=== PATIENT | female | born 2000 | race Two or more races ===

== ENCOUNTER 2021-07-20 17:16 | Emergency (ER) | payer OTHER ==
[2021-07-20 17:40] VITALS: BP 133/81; PULSE 95; TEMP 98.3; BMI 29.9
[2021-07-20 19:42] LABS: EPI CELLS 21 /uL (0-25.1); HYALINE CASTS 2 /uL (0-3.1); PH,URINE 6.5 (5.0-8.0); URINE APPEARANCE CLEAR; URINE BACTERIA 2261 /uL (0-1359); URINE BILIRUBIN NEGATIVE (NEGATIVE); URINE COLOR YELLOW; URINE GLUCOSE (UA) NEGATIVE (NEGATIVE); URINE KETONE 2+ (NEGATIVE); URINE LEUK ESTERASE 2+ (NEGATIVE); URINE NITRITE NEGATIVE (NEGATIVE); URINE PROTEIN 1+ (NEGATIVE); URINE RBC 14 /uL (0-23.9); URINE WBC 33 /uL (0-25.8)
[2021-07-20 20:10] LABS: HCG,QUALITATIVE URINE Negative
== END 2021-07-20 21:30 | disposition home or self-care (01) ==
LOC: JERFT 17:16
DX: N73.9 Female pelvic inflammatory disease, unspecified (principal)
CPT/HCPCS: 36415; 81003; 84703; 87070; 87086; 87205; 87491; 87591; 99284-25

== ENCOUNTER 2021-08-21 12:18 | Emergency (ER) | payer OTHER ==
[2021-08-21 12:43] VITALS: BP 113/63; PULSE 86; TEMP 98.1; BMI 29.9
[2021-08-21 14:02] LABS: URINE APPEARANCE CLEAR; URINE BILIRUBIN NEGATIVE (NEGATIVE); URINE COLOR YELLOW; URINE GLUCOSE (UA) NEGATIVE (NEGATIVE); URINE KETONE NEGATIVE (NEGATIVE); URINE LEUK ESTERASE NEGATIVE (NEGATIVE); URINE NITRITE NEGATIVE (NEGATIVE); URINE PROTEIN NEGATIVE (NEGATIVE)
== END 2021-08-21 15:53 | disposition home or self-care (01) ==
LOC: JERFT 12:18
DX: B37.3 Candidiasis of vulva and vagina (principal); N76.0 Acute vaginitis
CPT/HCPCS: 36415; 81003; 87070; 87086; 87205; 87491; 87591; 99283-25

== ENCOUNTER 2021-11-06 21:45 | Emergency (ER) | payer OTHER ==
[2021-11-06 22:24] VITALS: BMI 25.4
[2021-11-07 01:49] LABS: EPI CELLS 18 /uL (0-25.1); HCG,QUALITATIVE URINE Negative; HYALINE CASTS 0 /uL (0-3.1); URINE APPEARANCE CLEAR; URINE BACTERIA 71 /uL (0-1359); URINE BILIRUBIN NEGATIVE (NEGATIVE); URINE COLOR YELLOW; URINE GLUCOSE (UA) NEGATIVE (NEGATIVE); URINE KETONE 1+ (NEGATIVE); URINE LEUK ESTERASE NEGATIVE (NEGATIVE); URINE NITRITE NEGATIVE (NEGATIVE); URINE PROTEIN NEGATIVE (NEGATIVE); URINE RBC 15 /uL (0-23.9); URINE UROBILINOGEN 0.2 mg/dL (0.2-1.0); URINE WBC 2 /uL (0-25.8)
[2021-11-07 03:21] VITALS: BP 121/79; PULSE 87; TEMP 98.2
[2021-11-08 14:13] LABS: SARS-CoV-2 NAA Not Detected (Not Detected)
== END 2021-11-07 03:33 | disposition home or self-care (01) ==
LOC: JER 21:45
DX: N93.9 Abnormal uterine and vaginal bleeding, unspecified (principal)
CPT/HCPCS: 76830-TC; 81003; 84703; 99284-25; C9803-CS; U0003; U0005

== ENCOUNTER 2022-06-30 22:34 | Inpatient (IN) | payer OTHER ==
[2022-06-30 22:40] VITALS: BMI 29.9
[2022-06-30] MEDS ORDERED: KETOROLAC TROMETHAMINE 30 MG/1 ML VIAL IM ONE (23:03)
[2022-06-30] MEDS ORDERED: KETOROLAC TROMETHAMINE 30 MG/1 ML VIAL ONE (23:05)
[2022-06-30] MEDS ORDERED: ONDANSETRON *ODT* 4 MG TABLET SL ONE (23:54)
[2022-07-01] MEDS ORDERED: ONDANSETRON *ODT* 4 MG TABLET ONE (00:19)
[2022-07-01 00:40] LABS: EPI CELLS 15 /uL (0-25.1); HCG,QUALITATIVE URINE Negative; HYALINE CASTS 0 /uL (0-3.1); URINE APPEARANCE CLOUDY; URINE BACTERIA 467 /uL (0-1359); URINE BILIRUBIN NEGATIVE (NEGATIVE); URINE COLOR YELLOW; URINE GLUCOSE (UA) NEGATIVE (NEGATIVE); URINE KETONE TRACE (NEGATIVE); URINE LEUK ESTERASE NEGATIVE (NEGATIVE); URINE NITRITE NEGATIVE (NEGATIVE); URINE PROTEIN NEGATIVE (NEGATIVE); URINE RBC 24 /uL (0-23.9); URINE WBC 3 /uL (0-25.8)
[2022-07-01 03:05] LABS: EOS % 0.8 % (0-4.5); HEMATOCRIT 41.9 % (32.4-45.2); HEMOGLOBIN 14.7 GM/dL (10.7-15.3); LYMPH % 25.9 % (8-40); MCH 31.8 pg (25.7-33.7); MCHC 35.2 g/dl (32.0-36.0); MEAN CELL VOLUME 90.3 fl (80-96); MEAN PLT VOLUME 8.1 fl (7.5-11.1); MONO % 6.8 % (3.8-10.2); NEUT % 65.5 % (42.8-82.8); PLATELET COUNT 309 10^3/uL (134-434); RBC 4.64 M/mm3 (3.60-5.2); RDW 13.6 % (11.6-15.6); WHITE BLOOD COUNT 9.8 K/mm3 (4.0-10.0)
[2022-07-01 03:24] LABS: CALCIUM 9.7 mg/dL (8.5-10.1)
[2022-07-01 03:25] LABS: ALBUMIN 4.2 g/dl (3.4-5.0); BLOOD UREA NITROGEN 14.7 mg/dL (7-18)
[2022-07-01 03:28] LABS: CREATININE 0.6 mg/dL (0.55-1.3)
[2022-07-01 03:29] LABS: BILIRUBIN,TOTAL 0.4 mg/dL (0.2-1)
[2022-07-01 03:30] LABS: TOT PROT 7.5 g/dl (6.4-8.2)
[2022-07-01 04:55] LABS: URINE CRYSTALS MODERATE /hpf
[2022-07-01 06:23] VITALS: RESP 18
[2022-07-01] MEDS ORDERED: ACETAMINOPHEN 500 MG TABLET (FP) PO PRN (12:19)
[2022-07-01] MEDS ORDERED: KETOROLAC TROMETHAMINE 15 MG/ML VIAL IM PRN (12:19)
[2022-07-02 09:52] LABS: BASO % 0.3 % (0-2.0); EOS % 1.2 % (0-4.5); HEMATOCRIT 40.8 % (32.4-45.2); HEMOGLOBIN 13.9 GM/dL (10.7-15.3); LYMPH % 36.3 % (8-40); MCH 30.8 pg (25.7-33.7); MCHC 34.1 g/dl (32.0-36.0); MEAN CELL VOLUME 90.5 fl (80-96); MEAN PLT VOLUME 8.8 fl (7.5-11.1); MONO % 7.2 % (3.8-10.2); PLATELET COUNT 328 10^3/uL (134-434); RDW 13.7 % (11.6-15.6); WHITE BLOOD COUNT 6.3 K/mm3 (4.0-10.0)
[2022-07-02 10:15] LABS: CALCIUM 9.2 mg/dL (8.5-10.1)
[2022-07-02 10:16] LABS: BLOOD UREA NITROGEN 12.8 mg/dL (7-18)
[2022-07-02 10:18] LABS: PHOSPHOROUS 3.6 mg/dL (2.5-4.9)
[2022-07-02 10:19] LABS: CREATININE 0.7 mg/dL (0.55-1.3)
[2022-07-02 15:41] VITALS: BP 112/54; PULSE 80; TEMP 98.5
== END 2022-07-02 15:59 | disposition home or self-care (01) | DRG 532 ==
LOC: JER 22:34 → JERBED 07-01 05:13 → J5S 07-01 07:22
PROVIDERS: ADMIT Internal Medicine
DX: N83.292 Other ovarian cyst, left side (principal); I10 Essential (primary) hypertension; E78.5 Hyperlipidemia, unspecified; R10.2 Pelvic and perineal pain; F41.8 Other specified anxiety disorders; F31.9 Bipolar disorder, unspecified; E66.9 Obesity, unspecified; Z68.30 Body mass index [BMI] 30.0-30.9, adult; R10.32 Left lower quadrant pain; Z94.0 Kidney transplant status; Z94.4 Liver transplant status
CPT/HCPCS: 36415; 76830-TC; 80048; 80053; 81003; 83735; 84100; 84703; 85025; 87086; 99285-25; C9803-CS; Q0162; U0003; U0005

== ENCOUNTER 2022-10-25 12:29 | Emergency (ER) | payer OTHER ==
[2022-10-25 12:39] VITALS: BMI 35.7
[2022-10-25] MEDS ORDERED: ONDANSETRON *ODT* 4 MG TABLET SL ONE (13:03)
[2022-10-25] MEDS ORDERED: IBUPROFEN 600 MG TABLET (FP) PO ONE ×2 (13:03→13:16)
[2022-10-25] MEDS ORDERED: ONDANSETRON *ODT* 4 MG TABLET ONE (13:16)
[2022-10-25 14:31] VITALS: BP 120/73; PULSE 89; RESP 20; TEMP 98.4
[2022-10-25] MEDS ORDERED: ACETAMINOPHEN 1000 MG/100 ML BAG IVPB ONE (15:37)
[2022-10-25] MEDS ORDERED: ALBUTEROL SO4 2.5/IPRATROPIUM 0.5 INH SOL 3 ML VIAL.NEB. NEB ONE ×2 (15:37→15:49)
[2022-10-25] MEDS ORDERED: LACTATED RINGERS SOLUTION 1000 ML INFUS.BAG IV ONE (15:37)
[2022-10-25] MEDS ORDERED: ONDANSETRON 4 MG/2 ML VIAL IVPUSH ONE (15:37)
[2022-10-25] MEDS ORDERED: ACETAMINOPHEN INJECTION 100 ML IVPB ONE (15:49)
[2022-10-25] MEDS ORDERED: ONDANSETRON 4 MG/2 ML VIAL ONE (15:49)
[2022-10-25 16:52] LABS: BASO % 0.3 % (0-2.0); EOS % 2.4 % (0-4.5); HEMATOCRIT 43.1 % (32.4-45.2); HEMOGLOBIN 14.4 GM/dL (10.7-15.3); LYMPH % 18.4 % (8-40); MCH 30.4 pg (25.7-33.7); MCHC 33.5 g/dl (32.0-36.0); MEAN CELL VOLUME 90.6 fl (80-96); MEAN PLT VOLUME 8.6 fl (7.5-11.1); MONO % 6.8 % (3.8-10.2); NEUT % 72.1 % (42.8-82.8); PLATELET COUNT 370 10^3/uL (134-434); RBC 4.75 M/mm3 (3.60-5.2); RDW 13.6 % (11.6-15.6); WHITE BLOOD COUNT 10.4 K/mm3 (4.0-10.0)
[2022-10-25 17:17] LABS: ALBUMIN 3.8 g/dl (3.4-5.0); CALCIUM 9.3 mg/dL (8.5-10.1)
[2022-10-25 17:19] LABS: BLOOD UREA NITROGEN 10.2 mg/dL (7-18)
[2022-10-25 17:20] LABS: CREATININE 0.8 mg/dL (0.55-1.3)
[2022-10-25 17:22] LABS: BILIRUBIN,TOTAL 0.6 mg/dL (0.2-1); TOT PROT 7.9 g/dl (6.4-8.2)
[2022-10-25] MEDS ORDERED: FAMOTIDINE 20 MG/50 ML IVPB 20 MG/50 ML MG IVPB ONE ×2 (18:07→18:45)
[2022-10-25] MEDS ORDERED: MAG HYDROX/AL HYDROX/SIMETH -MYLANTA- ORAL SUSPENSION PO ONE (18:07)
[2022-10-25] MEDS ORDERED: SUCRALFATE 1 GM TABLET (FP) PO ONE (18:07)
[2022-10-25] MEDS ORDERED: MAG HYDROX/AL HYDROX/SIMETH 30 ML UNIT-DOSE CUP ONE (18:45)
[2022-10-25] MEDS ORDERED: SUCRALFATE 1 GM TABLET (FP) ONE (18:45)
[2022-10-25] MEDS ORDERED: FAMOTIDINE 10 MG TABLET PO ONE (18:49)
[2022-10-25] MEDS ORDERED: FAMOTIDINE 20 MG TABLET ONE (18:52)
== END 2022-10-25 19:42 | disposition home or self-care (01) ==
LOC: JER 12:29
PROC: 3E033GC Introduction of Other Therapeutic Substance into Peripheral Vein, Percutaneous Approach (ICD-10-PCS; principal; 2022-10-25)
PROC: 3E0F7GC Introduction of Other Therapeutic Substance into Respiratory Tract, Via Natural or Artificial Opening (ICD-10-PCS; 2022-10-25)
DX: J06.9 Acute upper respiratory infection, unspecified (principal)
CPT/HCPCS: 0241U-QW; 36415; 71046-TC-FY; 80053; 83735; 84484; 85025; 85379; 93005; 93010; 99285-25; Q0162

== ENCOUNTER 2023-08-08 00:45 | Emergency (ER) | payer OTHER ==
[2023-08-08 00:53] VITALS: BP 116/73; PULSE 90; RESP 18; TEMP 98; BMI 35.7
[2023-08-08] MEDS ORDERED: ACETAMINOPHEN 1000 MG/100 ML BAG IVPB ONE (02:35)
[2023-08-08] MEDS ORDERED: ONDANSETRON 4 MG/2 ML VIAL IVPUSH ONE ×2 (02:35→05:11)
[2023-08-08] MEDS ORDERED: ONDANSETRON 4 MG/2 ML VIAL ONE ×2 (02:44→05:11)
[2023-08-08] MEDS ORDERED: ACETAMINOPHEN INJECTION 100 ML IVPB ONE (02:44)
[2023-08-08 03:29] LABS: BASO % 0.7 % (0-2.0); EOS % 1.1 % (0-4.5); HEMATOCRIT 40.3 % (32.4-45.2); HEMOGLOBIN 14.1 GM/dL (10.7-15.3); LYMPH % 29.4 % (8-40); MCH 31.3 pg (25.7-33.7); MCHC 35.1 g/dl (32.0-36.0); MEAN CELL VOLUME 89.1 fl (80-96); MEAN PLT VOLUME 8.3 fl (7.5-11.1); MONO % 8.3 % (3.8-10.2); NEUT % 60.5 % (42.8-82.8); PLATELET COUNT 329 10^3/uL (134-434); RBC 4.52 M/mm3 (3.60-5.2); RDW 13.4 % (11.6-15.6); WHITE BLOOD COUNT 12.3 K/mm3 (4.0-10.0)
[2023-08-08 03:31] LABS: PH,URINE 6.5 (5.0-8.0); URINE APPEARANCE CLEAR; URINE BILIRUBIN NEGATIVE (NEGATIVE); URINE COLOR YELLOW; URINE GLUCOSE (UA) NEGATIVE (NEGATIVE); URINE KETONE TRACE (NEGATIVE); URINE LEUK ESTERASE NEGATIVE (NEGATIVE); URINE NITRITE NEGATIVE (NEGATIVE); URINE PROTEIN NEGATIVE (NEGATIVE)
[2023-08-08 03:36] LABS: INR 1.01 (0.83-1.09); PROTHROMBIN TIME (PATIENT) 11.7 SEC (9.7-13.0)
[2023-08-08 03:38] LABS: ACTIVATED PTT 29.4 SECONDS (25.2-36.5)
[2023-08-08 03:50] LABS: POTASSIUM 3.9 mmol/L (3.5-5.1)
[2023-08-08 03:51] LABS: ALBUMIN 3.9 g/dl (3.4-5.0); CALCIUM 8.9 mg/dL (8.5-10.1)
[2023-08-08 06:38] LABS: BILIRUBIN,TOTAL 0.4 mg/dL (0.2-1); TOT PROT 7.3 g/dl (6.4-8.2)
== END 2023-08-08 07:46 | disposition home or self-care (01) ==
LOC: JER 00:45
PROC: 3E033NZ Introduction of Analgesics, Hypnotics, Sedatives into Peripheral Vein, Percutaneous Approach (ICD-10-PCS; principal; 2023-08-08)
PROC: 3E033GC Introduction of Other Therapeutic Substance into Peripheral Vein, Percutaneous Approach (ICD-10-PCS; 2023-08-08)
PROC: 3E033GC Introduction of Other Therapeutic Substance into Peripheral Vein, Percutaneous Approach (ICD-10-PCS; 2023-08-08)
DX: R10.31 Right lower quadrant pain (principal); R11.0 Nausea; K59.00 Constipation, unspecified; N83.209 Unspecified ovarian cyst, unspecified side; R10.84 Generalized abdominal pain
CPT/HCPCS: 36415; 74177-TC; 80053; 81003; 83690; 84703; 85025; 85610; 85730; 86850; 86900; 86901; 87086; 99285-25